=== PATIENT | male | born 1975 ===

== ENCOUNTER → 2023-03-17 15:49 | Outpatient (CLI) | payer OTHER, SELFPAY ==
--- NOTE | ~2023-03-17 | MR_ITS ---
EXAMINATION: MR pelvis wo con DATE: 03/17/2023 16:29 INDICATION: Pelvic and perineal pain. TECHNIQUE: Magnetic resonance imaging (MRI) of the pelvis was performed without intravenous contrast. COMPARISON: None. FINDINGS: Bone alignment is normal. No fracture. There is mild osteoarthritis of the sacroiliac joints. Osteiti s pubis is noted. The hip joints demonstrate normal cartilage. There is pitting of left femoral neck. There is mild tendinopathy of the hamstring origins bilaterally. The iliopsoas tendons are normal. T he gluteus minimus and gluteus medius tendons are normal. There is mild bilateral trochanteric bursit is. IMPRESSION: 1. Osteitis pubis. Reviewed, dictated and finalized at location E. [facility] RN IMPRESSION: 1. Osteitis pubis.
== END ==
DX: M86.9 Osteomyelitis, unspecified (principal)
CPT/HCPCS: 72195